=== PATIENT | male | born 1990 | race Caucasian/White ===

== ENCOUNTER 2016-12-27 09:52 | Emergency (ER) | payer MEDICAID ==
[~2016-12-27] VITALS: Ht 172.7 cm; Wt 100.4 kg
[2016-12-27 09:54] VITALS: BP 147/98
--- NOTE | 2016-12-27 10:00 | NUR ---
PATIENT AMBULATED TO BED 2
--- NOTE | 2016-12-27 10:08 | NUR ---
RADIOLOGY COMPLETED AT BEDSIDE
--- NOTE | 2016-12-27 10:37 | NUR ---
DR BAILEY EVALUATING AAO PT AT BEDSIDE
[2016-12-27] MEDS ORDERED: LIDOCAINE 1% ***ER ONLY *** 50 ML ONE (10:40)
--- NOTE | 2016-12-27 10:42 | NUR ---
DR BAILEY AT BEDSIDE SUTURING PT AT BEDSIDE
[2016-12-27 11:18] VITALS: BP 117/77
[2016-12-27] MEDS ORDERED: BACITRACIN OINT 500 UNITS/GM PKT TP ONE (11:24)
== END 2016-12-27 11:18 | disposition home or self-care (01) ==
LOC: MED 09:52
DX: S51.812A Laceration without foreign body of left forearm, initial encounter (principal); K21.9 Gastro-esophageal reflux disease without esophagitis; W45.8XXA Other foreign body or object entering through skin, initial encounter; Y93.89 Activity, other specified; Y92.89 Other specified places as the place of occurrence of the external cause; Y99.8 Other external cause status
CPT/HCPCS: 12002; 73090; 90471; 90715; 99284; J2001; Q0092

== ENCOUNTER 2016-12-31 07:45 | Emergency (ER) | payer MEDICAID ==
[~2016-12-31] VITALS: Ht 172.7 cm; Wt 102.3 kg
[2016-12-31 07:56] VITALS: BP 165/101
--- NOTE | 2016-12-31 08:03 | NUR ---
26/M [facility] SELF FOR WOUND CHECK TO [facility]. WOUND C/D/I. AAOX4 WITH EVEN AND STEADY GAIT; LUNGS CLEAR BL; PATIENT STATES PAIN OF 0/10 AT THIS TIME; PATIENT POSITIONED FOR COMFORT; HOB ELEVATED; BEDRAILS UP X2; BED DOWN. MADAN OLMSTEAD MADE AWARE OF PT STATUS. Addendum: 12/31/16 at 0850 by MED1 SMALL SWELLING , NO REDNESS TO ABOVE LFA WOUND.
--- NOTE | 2016-12-31 08:25 | NUR ---
PER DR KRISHNAN ORDER ;RAMOS WRAP TO LFA BY FIDEL OLIVIA.
--- NOTE | 2016-12-31 08:25 | NUR ---
Amaury murray in ED - 12/31/16 at [address] ARIELLA ROSAS ;RAMOS WRAPCBY TO LFA BY FIDEL OLIVIA.
[2016-12-31 08:36] VITALS: BP 133/89
--- NOTE | 2016-12-31 08:36 | NUR ---
Patient discharged with BP 133/89; DENIES HEADACHE OR DIZINESS AT THIS TIME; MD MADE AWARE. Written and verbal after care instructions given and explained. Patient verbalized understanding. Ambulatory with steady gait. All questions addressed prior to discharge. Advised to follow up with PMD.
== END 2016-12-31 08:36 | disposition home or self-care (01) ==
LOC: MED 07:45
DX: M79.632 Pain in left forearm (principal); K21.9 Gastro-esophageal reflux disease without esophagitis; F17.210 Nicotine dependence, cigarettes, uncomplicated
CPT/HCPCS: 99281

== ENCOUNTER 2017-01-05 07:44 | Emergency (ER) | payer MEDICAID ==
[~2017-01-05] VITALS: Ht 172.7 cm; Wt 99.8 kg
[2017-01-05 07:48] VITALS: BP 147/96
--- NOTE | 2017-01-05 07:51 | NUR ---
PT AMBULATED TO BED 11.
--- NOTE | 2017-01-05 07:52 | NUR ---
26/M BIB SELF FOR SUTURES TO LEFT FOREARM. WOUND C/D/I. AAOX4 WITH EVEN AND STEADY GAIT; LUNGS CLEAR BL; PATIENT STATES PAIN OF 0/10 AT THIS TIME;PATIENT POSITIONED FOR COMFORT; HOB ELEVATED; BEDRAILS UP X2; BED DOWN. ER MD MADE AWARE OF PT STATUS.
--- NOTE | 2017-01-05 08:25 | NUR ---
STITCHES OFF TO LFA WOUND DONE. WOUND C/D/I. PT TOLERATED PROCEDURE WELL.
[2017-01-05 08:30] VITALS: BP 126/91
--- NOTE | 2017-01-05 08:30 | NUR ---
Patient discharged with v/s stable. Written and verbal after care instructions given and explained. Patient verbalized understanding. Ambulatory with steady gait. All questions addressed prior to discharge. Advised to follow up with PMD.
== END 2017-01-05 08:30 | disposition home or self-care (01) ==
LOC: MED 07:44
DX: S51.812D Laceration without foreign body of left forearm, subsequent encounter (principal); R03.0 Elevated blood-pressure reading, without diagnosis of hypertension; K21.9 Gastro-esophageal reflux disease without esophagitis; W45.8XXD Other foreign body or object entering through skin, subsequent encounter
CPT/HCPCS: 99281

== ENCOUNTER 2019-08-03 20:08 | Emergency (ER) | payer MEDICAID ==
[~2019-08-03] VITALS: Ht 175.3 cm; Wt 96.6 kg
[2019-08-03 20:25] VITALS: BP 168/121
--- NOTE | 2019-08-03 20:30 | NUR ---
Note trevor in EDM - 08/03/19 at 2030 by [facility] 28 Y/O M PRESENTS TO ED C/O RECTAL BLEEDING X 1 DAY. PER PT, PT SHAVED HIS BUTTOCKS ON SATURDAY, AND "MIGHT HAVE CUT THE SKIN." PER PT, BLEEDING CONTROLLED. MHX: STOMACH ULCER NKA
--- NOTE | 2019-08-03 20:33 | NUR ---
PT TRIAGED AND SENT BACK TO WAIT IN LOBBY.
--- NOTE | 2019-08-03 22:06 | NUR ---
FIRST CALL - NO ANSWER IN LOBBY
--- NOTE | 2019-08-03 23:10 | NUR ---
PATIENT LEFT WITHOUT BEING SEEN BY DR. CROCKER. NO FURTHER CARE PROVIDED FOR PATIENT.
== END 2019-08-03 22:06 | disposition left against medical advice (07) ==
LOC: MED 20:08
DX: K62.5 Hemorrhage of anus and rectum (principal); Z53.21 Procedure and treatment not carried out due to patient leaving prior to being seen by health care provider

== ENCOUNTER 2020-08-27 09:32 | Emergency (ER) | payer MEDICAID ==
[~2020-08-27] VITALS: Ht 172.7 cm; Wt 95.3 kg
[2020-08-27 09:40] VITALS: BP 173/102
--- NOTE | 2020-08-27 09:40 | NUR ---
PATIENT AMBULATED TO BED 5
--- NOTE | 2020-08-27 10:19 | NUR ---
29 YEAR OLD MALE COMPLAINS OF LOWER BACK PAIN X 3 DAYS. PT STATES HE WAS MOVING FURNITURE PRIOR TO PAIN STARTING. PT DENIES CHANGES IN URINATION. PT AOX4, BREATHING EVEN AND UNLABORED, SKIN WARM AND DRY. BED IN LOWEST POSITION, LOCKED, BED RAIL UPX1. PMH - DENIES ALLERGIES - NKA
[2020-08-27] MEDS ORDERED: KETOROLAC 30 MG/ML VIAL IM ONE (10:25)
[2020-08-27] MEDS ORDERED: DEXAMETHASONE 10 MG/ML VIAL IM ONE (10:25)
[2020-08-27] MEDS ORDERED: KETOROLAC 60 MG/2 ML VIAL IM ONE (10:27)
[2020-08-27] MEDS ORDERED: DEXAMETHASONE 10 MG/ML VIAL ONE (10:27)
[2020-08-27] MEDS ORDERED: LIDO5TDM59 TP (10:29)
[2020-08-27] MEDS ORDERED: TIZA4CAP PO (10:30)
[2020-08-27 10:40] VITALS: BP 173/102
--- NOTE | 2020-08-27 10:41 | NUR ---
Patient discharged with v/s stable. Written and verbal after care instructions given and explained. Patient alert, oriented and verbalized understanding of instructions. Wheel Chair Assisted with to car. All questions addressed prior to discharge. ID band removed. Patient advised to follow up with PMD. Rx of LIDODERM AND ZANAFLEX given. Patient educated on indication of medication including possible reaction and side effects. Opportunity to ask questions provided and answered.
== END 2020-08-27 10:41 | disposition home or self-care (01) ==
LOC: MED 09:32
DX: M54.5 Low back pain (principal); K21.9 Gastro-esophageal reflux disease without esophagitis; F12.90 Cannabis use, unspecified, uncomplicated; Z79.899 Other long term (current) drug therapy
CPT/HCPCS: 96372; 99284; J1100; J1885